=== PATIENT | female | born 1950 | race Caucasian/White ===

== ENCOUNTER 2019-02-02 13:04 | Inpatient (IN) | payer MEDICARE ==
[2019-02-02 13:45] LABS: #Eosinphils 0.1 thou/uL (0.0-0.7); #Lymphocytes 0.8 thou/uL (1.20-3.40); #Monocytes 1.1 thou/uL (0.11-0.59); #Neutrophils 6.6 thou/uL (1.40-6.50); %Basophils 0.5 % (0.0-1.0); %Eosinophils 1.4 % (0.0-10.0); %Lymphocytes 8.8 % (21.0-51.0); %Monocytes 12.4 % (0.0-10.0); %Neutrophils 76.8 % (42.0-75.0); Hemoglobin 9.9 g/dL (12.0-16.0); Mean Corpuscular HGB CONC 32.5 g/dL (32.0-36.0); Mean Corpuscular Hemoglobin 31.2 pg (27.0-31.0); Mean Corpuscular Volume 96.1 fL (78.0-98.0); Mean Platelet Volume 6.7 fL (7.4-10.4); Platelet Count 331 thou/uL (130-400); RBC Distribution Width 12.5 % (11.5-14.5); Red Blood Cell (RBC) Count 3.16 mill/uL (4.20-5.40); White Blood Cell (WBC) Count 8.6 thou/uL (4.8-10.8)
--- NOTE | 2019-02-02 13:51 | RAD ---
Exam: Chest one view HISTORY:Emergency exam for syncope Comparison: 12/27/2018 FINDINGS: Lungs: Persistent focal density of the right suprahilar region Cardiac silhouette:Stable prominence Pulmonary vessels: Central engorgement Pleural Spaces: Clear Pneumothorax: None Osseous abnormalities: None of acuity. IMPRESSION: Persistent right suprahilar focal opacity remains. Given persistence, follow-up with contrast-enhanced CT thorax is recommended.
[2019-02-02 14:07] LABS: ALT (SGPT) 13 U/L (8-55); AST (SGOT) 19 U/L (5-34); Albumin 3.4 g/dL (3.4-4.8); Alkaline Phosphatase 55 U/L (40-150); Anion Gap 14 mmol/L (10-20); BUN (Urea Nitrogen) 31 mg/dL (9.8-20.1); Bilirubin, Total 0.3 mg/dL (0.2-1.2); Calc. Creatinine Clearance 0 mL/min (70-130); Carbon Dioxide 18 mmol/L (23-31); Chloride 99 mmol/L (98-107); Estimated GFR-MDRD 40; Globulin 2.1 g/dL (2.4-3.5); Glucose 92 mg/dL (80-115); Magnesium 1.9 mg/dL (1.6-2.6); Potassium 4.4 mmol/L (3.5-5.1); Protein, Total 5.5 g/dL (6.0-8.3); Sodium 127 mmol/L (136-145)
[2019-02-02 14:28] LABS: CKMB 1.3 ng/mL (0-6.6)
[2019-02-02] MEDS ORDERED: Ondansetron ODT 4 MG TAB SL PRN (16:24)
[2019-02-02] MEDS ORDERED: Ondansetron PF 4 MG/2 ML Vial IVP PRN (16:24)
[2019-02-02 16:29] VITALS: BMI 21.7
[2019-02-02] MEDS ORDERED: Acetaminophen 325 MG TAB PO PRN (16:49)
[2019-02-02] MEDS ORDERED: Metoclopramide HCl 10 MG/2 ML VIAL IVP PRN (16:51)
[2019-02-02 17:35] LABS: Troponin I 0.017 ng/mL (< 0.028)
[2019-02-02 17:59] LABS: Anion Gap 15 mmol/L (10-20); BUN (Urea Nitrogen) 25 mg/dL (9.8-20.1); Calc. Creatinine Clearance 61 mL/min (70-130); Calcium 8.3 mg/dL (7.8-10.44); Carbon Dioxide 21 mmol/L (23-31); Chloride 101 mmol/L (98-107); Estimated GFR-MDRD 55; Glucose 94 mg/dL (80-115); Potassium 4.5 mmol/L (3.5-5.1); Sodium 132 mmol/L (136-145)
--- NOTE | 2019-02-02 18:05 | HP ---
PRIMARY CARE: Jesenia Khanna MD CHIEF COMPLAINT: Passing out. HISTORY OF PRESENT ILLNESS: This is a 68-year-old female with remote history of breast cancer, status post mastectomy, who presents to the emergency room via EMS for a syncopal event at home. The patient reports today her neck started hurting, and her rubbed it for her. The patient reports today otherwise feeling well except for having some neck pain. States that she got up and started walking and became dizzy; at which point, she sat down. She thought she was feeling okay, stood up again and then felt like she was going down and was shaking all over. She was told by her that she became unresponsive, and she does not remember the events afterwards. However, she reports, when she came to, she was not confused. Denies any loss of bowel or bladder function. She does report nausea yesterday , but no vomiting, and 2 days ago, having multiple episodes of vomiting for which she was seen by a primary care provider and received promethazine and Zofran. She was able to eat breakfast today, denies any precipitants or relieving factors for her current symptoms. The patient has a history of migraines and is on multiple medications for this and reports that she has had weeks of right-sided pain around her eye. She is working with Dr. Khanna to get the CT of her sinuses for further evaluation. She also reports chronically a runny nose and a sensation of pressure around her right eye. She denies any fevers, chills, chest pain, difficulty breathing, nausea, vomiting, or diarrhea currently. She also denies any urinary changes or vision changes. In discussion with the emergency room doctor, she was found by EMS with the pulse as low as the 30s to 40s, systolic blood pressure in the 60s, and was brought to the emergency room here. Her initial vital signs here were blood pressure of 98/53, pulse of 54, and hospitalist called for admission due to concern of symptomatic bradycardia as well as hyponatremia. ALLERGIES: PENICILLIN. CURRENT MEDICATIONS: Reconciled with the patient, 1. Breo Ellipta 200-25 one inhalation daily. 2. Nadolol that she takes at night 80 mg tablet, 1-1/2 tablets at bedtime. 3. Escitalopram 20 mg daily. 4. Gabapentin 300 mg b.i.d. 5. Tylenol No. 3, reports rare use. 6. Promethazine 25 mg one dose today and one dose 2 days ago. 7. Tizanidine 4 mg at bedtime. 8. Ketorolac 10 mg tablets 2 tablets as needed, which she estimates are weekly. 9. Zofran ODT 4 mg two doses recently. 10. Relpax 40 mg tablets, 2 tablets as needed, she reports a few times per week. PAST MEDICAL HISTORY: 1. Bronchiectasis. 2. Mycobacterial abscesses of the lung. 3. Occipital neuralgia. 4. Migraines. 5. History of breast cancer, status post right mastectomy in 1985. PAST SURGICAL HISTORY: 1. Jaw surgery. 2. Cholecystectomy. 3. Hysterectomy. 4. Oophorectomy. 5. Right mastectomy in 1985. 6. Knee surgery. 7. Umbilical hernia repair. SOCIAL HISTORY: The patient is . Her Femi and son Chandu are her surrogate decision makers. She denies any tobacco, and reports rare alcohol use. FAMILY HISTORY: Her mom who with lung problems. REVIEW OF SYSTEMS: Positive for headache that she has had for weeks, chronic rhinorrhea, pressure around her right eye. Negative for fevers, chills, chest pain, shortness of breath, nausea, vomiting, diarrhea, urinary changes, or vision changes. All remaining review of systems are reviewed and negative. PHYSICAL EXAMINATION: VITAL SIGNS: Blood pressure is 147/67, pulse 53, respirations 18, temperature 97.3, and sats 97% on room air. GENERAL: Awake, alert, responsive, in no apparent distress. Able to speak in full sentences. HEENT: Her pupils are equal, round, and reactive to light. No scleral icterus. Oral mucosa is pink, appears dry. NECK: Supple, nontender. LYMPHATICS: No palpable cervical or supraclavicular lymphadenopathy. LUNGS: Clear to auscultation bilateral. No audible wheezing, rhonchi, or rales. HEART: Normal S1, S2. Regular rate and rhythm. No significant murmur. ABDOMEN: Soft with present bowel sounds. Nontender. Nondistended. EXTREMITIES: No clubbing, cyanosis, or edema. SKIN: No visible rashes. NEUROLOGIC: No focal deficits. Strength 5/5 in her upper and lower extremities. Cranial nerves 2 through 12 are intact. PSYCH: She is euthymic. Alert and oriented x4. VASCULAR: 2+ dorsalis pedis pulses. IMAGING: EKG; personally reviewed, sinus bradycardia with a rate of 54, normal axis, a QT corrected of 508. No ST changes. Chest x-ray shows a right suprahilar focal opacity that was present also on a chest x-ray in December with a recommendation for CT of her thorax. LABORATORY DATA: Labs reviewed. CBC; 8.6, 9.9, 30.4, 331 with 76% neutrophils , 8% lymphocytes. Renal panel; 127, 4.4, 99, 18, 31, 1.31 with a glucose of 92, no other creatinine for reference. LFTs are T-bilirubin 0.3, AST 19, ALT 13, alkaline phosphatase 55, total protein 5.5, albumin 3.4. Troponin 0.029. IMPRESSION: 1. Syncope with significant bradycardia noted on EMS evaluation in a patient who is on beta piotr for migraine prophylaxis. 2. Hypotension in conjunction with the bradycardia in a patient with significant nausea and vomiting recently and decreased p.o. intake. 3. Hyponatremia, likely hypovolemic hyponatremia in conjunction with the recent nausea, vomiting, and decreased p.o. intake. 4. Acute kidney injury versus chronic kidney disease. No prior labs for comparison. 5. Acute on chronic migraines. 6. Anemia, uncertain chronicity, no reports of active bleeding. 7. Prolonged QT interval with a QTc of 508. 8. An abnormal chest x-ray of uncertain etiology, needs further workup. 9. Hypoproteinemia. 10. Bronchiectasis, no signs of exacerbation. PLAN: 1. Admission to the hospital. 2. Monitoring on telemetry in the [facility], holding her nadolol, obtaining echocardiogram, and Cardiology consultation. 3. We will continue selective home medicines including the Breo, gabapentin, and tizanidine. 4. Because of the prolonged QT interval, we will hold the promethazine and Zofran and use Reglan instead for nausea, vomiting, or migraine. 5. Holding NSAIDs for now given the acute kidney injury. 6. We will characterize the anemia and monitor with ordering iron and vitamin studies. 7. We will obtain urine test to evaluate further hyponatremia. 8. Hold on the CT Thorax scan, we will await evaluation from a Cardiac perspective first, monitor her renal functions and determine if that is an inpatient or outpatient evaluation. Pulmonology by hospital protocol is consulted with an [facility] patient. 9. Falls precautions. 10. DVT prophylaxis. Pneumatic compression devices. 11. GI prophylaxis, not indicated. 12. Code status is full. Surrogate decision maker as above. 13. Reviewed the plan of care with patient and her family. No questions or further needs at the end of evaluation. The patient is at high risk given age, comorbidities, and current presentation. Job ID: [id number] MTDD
[2019-02-02 18:43] LABS: Bacteria/HPF 1+ HPF (None Seen); Bilirubin Negative (Negative); Blood, Urine Negative (Negative); Clarity Clear (Clear); Glucose, Urine (Dipstick) Normal (Negative); Leukocyte Negative Leu/uL (Negative); Nitrite Negative (Negative); Protein, Urine (Dipstick) Negative (Neg-Trace); RBC/HPF 0-3 HPF (0-3); Squamous Epithelial None Seen HPF (0-3); Urobilinogen Normal mg/dL (Less than 2); WBC/HPF 0-3 HPF (0-3)
[2019-02-02] MEDS: Arformoterol 15 MCG/2 ML NEB NEB SCH (18:58)
[2019-02-02] MEDS: Budesonide 0.5 MG/2 ML NEB INH SCH (18:58)
[2019-02-02 19:03] LABS: Urine Culture Reflex No No
[2019-02-02] MEDS ORDERED: Sodium Chloride 0.9% 500 ML IV SCH (19:15)
[2019-02-02 19:25] LABS: Creatinine, Urine Less than 20.00 mg/dL (47-110); Sodium, Urine 26 mmol/L (Not Available)
--- NOTE | 2019-02-02 19:41 | CON ---
DATE OF CONSULTATION: 02/02/2019 REASON FOR CONSULTATION: Syncope. HISTORY OF PRESENT ILLNESS: Ms. Ortega is a pleasant 68-year-old white female, who comes to the hospital for syncopal spell. She was at home and stood up, felt lightheaded. She says her blood pressure usually runs low, so she is used to feeling lightheaded when she stands up. She thought was going to pass, so she sat back down. She thought it was better, so she stood up to go to the bathroom and she felt very much more lightheaded than before and eventually went to the ground. She does not remember much after that, but per her 's report, she apparently started shouting to capture. He dropped his lunch and went to her and was able to put her softly to the ground. She eventually woke up after EMS had arrived already. She tells me that her states that she actually came back, regained consciousness while she was still on the floor, but she does not remember and she tried to get up and when she tried to get up, she again lost consciousness. When EMS arrived, her heart rate was in the 40s and her blood pressure was in the 60s/40s. She was brought in through EMS and in the ER, her heart rate kept dipping down to the 30s, but she was awake at that point. She received IV fluids and admitted for the syncopal spell. She states that two days before this episode happened, she had an episode of severe bouts of nausea and vomiting. She thinks she might have had some food poisoning as she states she probably threw up about 10 times in the whole day. She was not able to keep anything down. She called the service "[facility]" to come to her house and they actually came over to her house and gave her a shot of an anti-inflammatory. She was also having migraine headaches and they gave her IM Phenergan. She did not really increase her fluid intake the day after. She feels that she just drank fluids as normal, but she feels that she was very light on her food and water intake the next day. Currently, she is feeling back to normal. Her blood pressure is actually on the high side and her heart rate has remained in the 60s. PAST MEDICAL HISTORY: 1. Migraine headaches. 2. Breast cancer, status post mastectomy in the 1980s, in remission since. 3. Bronchiectasis. 4. Mycobacterial abscess of the lung in the past. 5. Occipital neuralgia. PAST SURGICAL HISTORY: 1. Jaw surgery. 2. Cholecystectomy. 3. Hysterectomy. 4. Oophorectomy. 5. Right mastectomy in 1985. 6. Knee surgery. 7. Umbilical hernia repair. MEDICATIONS: Outpatient medications include: 1. Breo Ellipta. 2. Nadolol 80 mg tablet, one and a half tablets at bedtime, so a total of 120 mg. 3. Escitalopram 20 mg. 4. Gabapentin 300 mg b.i.d. 5. Tylenol No. 3. 6. Promethazine. 7. Tizanidine at bedtime. 8. Ketorolac. 9. Zofran ODT. 10. Relpax. SOCIAL HISTORY: No alcohol, tobacco, or drugs. FAMILY HISTORY: No early coronary artery disease. REVIEW OF SYSTEMS: A 12-point review of systems was done and was all negative unless stated in the history of present illness. PHYSICAL EXAMINATION: VITAL SIGNS: Pulse of 65, respiratory rate 16, saturating 97% on room air, and blood pressure 162/88. GENERAL: Awake, alert, oriented x3, in no distress. HEENT: Normocephalic, atraumatic. NECK: Supple. LUNGS: Clear. CARDIOVASCULAR: S1 and S2. No S3 or S4. No murmurs. ABDOMEN: Soft. Positive bowel sounds. EXTREMITIES: No edema. SKIN: Warm and dry. LABORATORY DATA: Laboratory work was reviewed. Sodium was 127 on admission, up to 132 after IV fluids. Creatinine was 1.3 on admission, down to 1.01 after fluids. Troponin was 0.02 and then 0.01 with a normal CK-MB. Albumin of 3.4. EKG was reviewed. Sinus bradycardia in the ER, but sinus rhythm since. Chest x-ray was reviewed. ASSESSMENT: 1. Syncope. Most likely, orthostatic hypotension. 2. Hypernatremia. Likely, low volume. 3. Acute kidney injury. Normalized creatinine after IV fluids. PLAN: 1. I do not think her syncopal episode was related to bradycardia. More than likely, it was related to having orthostatic hypotension from being dehydrated from all the nausea and vomiting that she had the day before. We would give her IV fluids to try to get her backup fluid thomas. I do not think she needs a pacemaker at this time. 2. We would stop nadolol indefinitely given her borderline low heart rate at baseline. 3. Continue to monitor overnight, likely home once sodium and kidney function back to normal. 4. We would just recommend maintaining well hydrated. If she ever has another episode of nausea, vomiting, or diarrhea, she needs to really keep hydrating as much as possible. Thank you for letting us to participate in the care of your patient. We will continue to follow. Job ID: [id number]
[2019-02-02 19:51] LABS: Troponin I Less than 0.010 ng/mL (< 0.028)
[2019-02-02] MEDS: Gabapentin 300 MG CAP PO SCH (20:30)
[2019-02-02] MEDS ORDERED: tiZANidine HCl 4 MG TAB PO SCH (21:00)
[2019-02-03 04:09] LABS: #Basophils 0.1 thou/uL (0.0-0.2); #Eosinphils 0.2 thou/uL (0.0-0.7); #Lymphocytes 1.1 thou/uL (1.20-3.40); #Monocytes 1.2 thou/uL (0.11-0.59); #Neutrophils 7.3 thou/uL (1.40-6.50); %Basophils 0.7 % (0.0-1.0); %Eosinophils 1.7 % (0.0-10.0); %Lymphocytes 11.3 % (21.0-51.0); %Monocytes 12.2 % (0.0-10.0); %Neutrophils 74.1 % (42.0-75.0); Hemoglobin 10.4 g/dL (12.0-16.0); Mean Corpuscular HGB CONC 32.5 g/dL (32.0-36.0); Mean Corpuscular Volume 95.5 fL (78.0-98.0); Mean Platelet Volume 6.4 fL (7.4-10.4); Platelet Count 383 thou/uL (130-400); RBC Distribution Width 12.5 % (11.5-14.5); Red Blood Cell (RBC) Count 3.37 mill/uL (4.20-5.40); White Blood Cell (WBC) Count 9.8 thou/uL (4.8-10.8)
[2019-02-03 04:32] LABS: Anion Gap 12 mmol/L (10-20); BUN (Urea Nitrogen) 20 mg/dL (9.8-20.1); Calc. Creatinine Clearance 74 mL/min (70-130); Calcium 8.5 mg/dL (7.8-10.44); Carbon Dioxide 22 mmol/L (23-31); Chloride 104 mmol/L (98-107); Estimated GFR-MDRD 67; Glucose 83 mg/dL (80-115); Iron 20 ug/dL (50-170); Iron Binding Capacity, Total 309 mcg/dL (265-497); Potassium 3.9 mmol/L (3.5-5.1); Sodium 134 mmol/L (136-145)
[2019-02-03 05:54] LABS: Folate (Folic Acid) 10.3 ng/mL (7.0-31.4)
[2019-02-03] MEDS: Budesonide 0.5 MG/2 ML NEB INH SCH (07:49)
[2019-02-03] MEDS: Arformoterol 15 MCG/2 ML NEB NEB SCH (07:50)
[2019-02-03] MEDS: Gabapentin 300 MG CAP PO SCH (08:21)
[2019-02-03] MEDS ORDERED: Escitalopram Oxalate 20 mg Tablet PO SCH (09:00)
--- NOTE | 2019-02-03 11:05 | CON ---
DATE OF CONSULTATION: 02/03/2019 CONSULTING PHYSICIAN: Shalini Bear MD. REASON FOR CONSULTATION: Abnormal x-ray. HISTORY OF PRESENT ILLNESS: Ms. Ortega is a pleasant 68-year-old female, who recently relocated to this area, [place], [place]. She was brought in yesterday with symptomatic bradycardia, which was thought to be a combination of dehydration and use of beta-piotr. She was noted to have an abnormal x-ray with a density in the right upper lobe. She tells me she was diagnosed with bronchiectasis back in 2004. At that time, she had Mycobacterium abscessus infection. She was sent from [facility] for consultation to [facility]. 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 She surprisingly is relatively asymptomatic from this. She occasionally has a cough. She has been taking Breo Ellipta for that and has been relatively stable. She has always had an abnormal x-ray since the original diagnosis. She apparently has a CT scan in her position at home, but is not currently available for review at the hospital. PAST MEDICAL HISTORY: 1. Bronchiectasis. 2. Mycobacterial infections. 3. Migraine headaches. 4. Breast cancer. PAST SURGICAL HISTORY: Right mastectomy, jaw surgery, cholecystectomy, hysterectomy, oophorectomy, knee surgery, and umbilical hernia repair. SOCIAL HISTORY: Quit smoking over 45 years ago. She lives in [place]. Does not consume alcohol. FAMILY MEDICAL HISTORY: Unremarkable. MEDICATIONS: Prior to admission; 1. Breo Ellipta 200/25 one puff daily. 2. Nadolol 80 mg one and a half tablet nightly. 3. Escitalopram 20 mg daily. 4. Gabapentin 300 mg b.i.d. 5. Tylenol No. 3 as needed. 6. Promethazine 25 mg as needed. 7. Tizanidine 4 mg nightly. 8. Ketoralac 10 mg 2 tablets as needed. 9. Zofran 4 mg as needed. 10. Relpax 40 mg two as needed. REVIEW OF SYSTEMS: Twelve-point review of systems is otherwise negative. PHYSICAL EXAMINATION: VITAL SIGNS: Temperature 98.5, pulse 65, blood pressure 184/67, and O2 saturation 93%. GENERAL: She is awake and alert, in no distress. HEENT: Remarkable for no acute findings. NECK: Without adenopathy or JVD. CHEST: Clear without wheezing or rhonchi. CARDIAC: S1 and S2 regular without murmur. ABDOMEN: Soft, nontender, and nondistended. EXTREMITIES: No clubbing, cyanosis, or edema. LABORATORY DATA: Sodium of 134, potassium 3.9, chloride 104, CO2 of 22, BUN 20, creatinine 0.8, and glucose 83. White blood cell count 9.8, hematocrit 32.1, and platelet count 383. IMAGING DATA: Chest x-ray from yesterday and from 12/27 was reviewed, demonstrates a chronic scar present in the right upper lobe. No acute findings, otherwise. ASSESSMENT: Bronchiectasis with a history of atypical mycobacterial infections, currently asymptomatic. Her x-ray is most likely consistent with the bronchiectasis. RECOMMENDATIONS: I would not recommend further imaging at this time. I have asked her to follow up in the office with the old CT scan, so we can compare. I would not change her medical regimen for this. She can follow up in the office in 4 to 6 weeks. The above encompassed 50 minutes time, of that time, greater than 50% was spent with the patient and/or the patient's unit in the hospital. From a Pulmonary standpoint, the patient is cleared to go home today. Job ID: [id number]
[2019-02-03 11:35] VITALS: TEMP 98
[2019-02-03 11:52] VITALS: BP 172/80
--- NOTE | 2019-02-03 13:36 | PDOC.CTH ---
Cardiology Progress Note - Subjective Doing very well. BP a little on the high side now. - Objective Vital Signs Temp Pulse Resp BP BP BP BP 02/03/19 11:49 168/83 H 166/76 H 172/80 H 02/03/19 11:35 98.0 F 02/03/19 08:00 02/03/19 07:52 98.7 F 02/03/19 07:49 63 18 02/03/19 05:00 161/62 H 02/03/19 03:45 98.5 F 02/03/19 03:00 132/59 L Pulse Ox 02/03/19 11:49 02/03/19 11:35 02/03/19 08:00 97 02/03/19 07:52 02/03/19 07:49 100 02/03/19 05:00 02/03/19 03:45 02/03/19 03:00 Weight 160 lb 4.417 oz 02/02/19 02/03/19 02/04/19 06:59 06:59 06:59 Intake Total 740 Balance 740 - Physical Examination General/Neuro: alert & oriented x3, NAD Neck: no JVD present Lungs: CTA, unlabored respirations Heart: RRR Abdomen: NT/ND Extremities: + edema B (no edema) - Telemetry Telemetry Rhythm: NSR - Labs Result Diagrams: 02/03/19 03:57 02/03/19 03:57 Troponin/CKMB CK-MB (CK-2) 1.3 ng/mL (0-6.6) 02/02/19 13:26 Troponin I Less than 0.010 ng/mL (< 0.028) 02/02/19 19:14 - Assessment/Plan 1. Syncope. 2. Likely orthostatic hypotension from dehydration from recent bouts of emesis. 3. Mild to moderate AI. 4. HTN 5. Migraine headaches. PLAN: - Continue current meds. - Hold Nadolol indefinitely. - Will ask her to continue to check her BP sitting and standing and will bring a log of her numbers on next visit. - May discharge home from cardiac perspective. - Follow up in the office in 1 month.
--- NOTE | 2019-02-03 22:19 | DIS ---
DATE OF ADMISSION: 02/02/2019 DATE OF DISCHARGE: 02/03/2019 PRIMARY CARE PROVIDER: Jesenia Khanna MD DISCHARGE DIAGNOSES: 1. Syncope. 2. Dehydration. 3. Bradycardia. 4. Hyponatremia. 5. Acute kidney injury. CONDITION OF PATIENT ON THE DAY OF DISCHARGE: Stable. I assessed Ms. Ortega on the day of discharge. She denies any chest pain or shortness of breath. Vital signs are stable. S1 and S2 are heard, regular. Lungs are clear to auscultation bilaterally. DISCHARGE MEDICATIONS: Nadolol has been discontinued. Otherwise, no change was made to her pre-admission home medications as dictated by Dr. Bear in her history and physical note dated February 02, 2019. CONSULTATIONS DURING THIS HOSPITALIZATION: 1. Cardiology, Zach Real MD. 2. Pulmonology, David Oviedo MD. HOSPITAL COURSE: Ms. Ortega is a pleasant 68-year-old lady, who was admitted to [facility] on February 02, 2019, for syncopal episode. She had nausea, vomiting, and diarrhea prior to this hospitalization. She was clinically dehydrated. She was seen by Cardiology, Pulmonary, and Critical Care Medicine Services. She was also bradycardic at the time of admission. Nadolol was discontinued. Her syncopal episode was mainly felt to be secondary to dehydration resulting in orthostatic hypotension. 2D echocardiogram showed left ventricular ejection fraction of 60% to 65%, grade 1/3 diastolic dysfunction, mildly dilated left atrium, mitral annular calcification, mild mitral regurgitation, aortic valve sclerosis, [id number] aortic regurgitation, and mild tricuspid regurgitation. Cardiology and Pulmonology Services will follow up with her as outpatient. On the day of discharge, she has white count 9800, hemoglobin 10.4, platelet count 383,000. Sodium 134, potassium 3.9, and creatinine 0.84. Please note that the patient also had acute kidney injury at the time of admission, this resolved by the day of discharge. During this hospitalization, she had vitamin B12 level of 396, folate level of 10.30, and normal troponin I. Many thanks for allowing me to participate in your patient's care. Please feel free to contact me with any questions or concerns. DISCHARGE DESTINATION: Home. TIME SPENT: Total amount of time spent coordinating this discharge: 31 minutes. Job ID: [id number]
== END 2019-02-03 13:00 | disposition home or self-care (01) | DRG 312 ==
LOC: ERS 13:04 → IMCU/EMU 15:20
PROVIDERS: ADMIT Family Medicine; ATTEND Family Medicine
DX: I95.1 Orthostatic hypotension (principal); E87.1 Hypo-osmolality and hyponatremia; N17.9 Acute kidney failure, unspecified; G43.909 Migraine, unspecified, not intractable, without status migrainosus; R00.1 Bradycardia, unspecified; D64.9 Anemia, unspecified; J47.9 Bronchiectasis, uncomplicated; E77.8 Other disorders of glycoprotein metabolism; E86.0 Dehydration; I08.3 Combined rheumatic disorders of mitral, aortic and tricuspid valves; Z88.0 Allergy status to penicillin; Z85.3 Personal history of malignant neoplasm of breast; Z90.11 Acquired absence of right breast and nipple; Z90.49 Acquired absence of other specified parts of digestive tract; Z90.710 Acquired absence of both cervix and uterus; Z90.721 Acquired absence of ovaries, unilateral; Z87.891 Personal history of nicotine dependence
CPT/HCPCS: 36415; 71045; 80048; 80053; 81001; 82553; 82570; 82607; 82728; 82746; 83540; 83550; 83735; 83935; 84300; 84484; 85025; 86850; 86900; 86901; 93005; 93306; 94640; J7626

== ENCOUNTER 2019-02-09 13:06 | Outpatient (CLI) | payer MEDICARE ==
--- NOTE | 2019-02-09 14:11 | CT ---
PARANASAL SINUS CT NONCONTRAST: INDICATION: Right facial pain. COMPARISON: No prior imaging comparison. FINDINGS: Left femoral sinus, ethmoid sinus, sphenoid sinus, and maxillary sinuses are patent. There is no roxanne dence of otomastoid effusion. Regional soft tissues are grossly unremarkable by noncontrast appearan ce. There is mild leftward nasal sepal deviation. IMPRESSION: No CT evidence of acute sinusitis. POS: [facility]
== END 2019-02-09 13:07 | disposition home or self-care (01) ==
LOC: SCSCT 13:06
PROVIDERS: ATTEND Family Medicine
DX: R51 Headache (principal)

== ENCOUNTER 2019-02-14 15:33 | Emergency (ER) | payer MEDICARE ==
[2019-02-14] MEDS ORDERED: diphenhydrAMINE 50 MG/ML VIAL ONE (15:48)
[2019-02-14] MEDS ORDERED: Metoclopramide HCl 10 MG/2 ML VIAL ONE (15:48)
[2019-02-14] MEDS ORDERED: Ketorolac Tromethamine 30 MG/ML VIAL ONE (15:48)
[2019-02-14] MEDS ORDERED: Magnesium 2 GM/50 ML BAG (IN WATER) ONE (16:24)
[2019-02-14] MEDS ORDERED: methylPREDNISolone Sod Succ/PF 125 MG/2 ML VIAL ONE (16:24)
[2019-02-14] MEDS ORDERED: Haloperidol Lactate 5 MG/ML VIAL ONE (17:17)
--- NOTE | 2019-02-14 18:32 | CT ---
CT HEAD WITHOUT CONTRAST: 02/14/19 Axial tomograms obtained without IV enhancement. INDICATIONS: Headache. Ventricles have normal size and position. No intracranial mass or hemorrhage. No evidence of infarct or edema. Sinuses and mastoid are well aerated and clear. IMPRESSION: No acute process. POS: [facility]
[2019-02-14] MEDS ORDERED: Diazepam 5 MG TAB ONE (18:36)
[2019-02-14] MEDS ORDERED: Promethazine HCl 12.5 MG SUPP ONE (19:53)
[2019-02-14] MEDS ORDERED: Metoprolol Tartrate 5 MG/5 ML VIAL ONE (19:53)
[2019-02-14] MEDS ORDERED: Promethazine HCl 25 MG/ML VIAL ONE (19:55)
== END 2019-02-14 20:55 | disposition home or self-care (01) ==
LOC: ERS 15:33
DX: R51 Headache (principal); R11.2 Nausea with vomiting, unspecified; Z79.899 Other long term (current) drug therapy; Z79.891 Long term (current) use of opiate analgesic
CPT/HCPCS: 70450; 96365; 96367; 96368; 96375; J1200; J1630; J1885; J2550; J2765; J2930; J3475

== ENCOUNTER 2019-02-27 10:50 | Outpatient (CLI) | payer MEDICARE ==
--- NOTE | 2019-02-27 13:16 | MRI ---
MRI BRAIN WITH AND WITHOUT CONTRAST: Date: 02/27/19 Multiplanar, multisequential imaging obtained. Postcontrast images obtained after administering 14 mL MultiHance IV. INDICATION: Headache. Correlation made to CT head dated 02/14/19. FINDINGS: Ventricles have normal size and position. No evidence of restricted diffusion. There is no evidence o f mass or edema. Minimal white matter change seen consistent with age. Intracranial internal carotid arteries and cerebral arteries show expected flow-voids. No abnormal enhancement identified. IMPRESSION: Unremarkable MRI brain. POS: [facility]
== END 2019-02-27 10:51 | disposition home or self-care (01) ==
LOC: SCSMRI 10:50
PROVIDERS: ATTEND Psychiatry & Neurology Neurology
DX: G43.019 Migraine without aura, intractable, without status migrainosus (principal)
CPT/HCPCS: 70553

== ENCOUNTER 2019-05-18 13:05 | Outpatient (CLI) | payer MEDICARE ==
--- NOTE | 2019-05-18 15:50 | CT ---
CT CHEST WITH CONTRAST: Date: 05/18/19 Multiplanar reconstruction with IV enhancement. INDICATION: Persistent density in the right upper lung on chest films. Correlation made to the most recent chest film available dated 02/02/19. Comparison made to previous chest [facility] from [facility] dated 01/21/16. FINDINGS: There is right apical pleural thickening and apical stranding. There is a right apical nodule with mi ld spiculation which measures 7.0 mm in the axial plane. This nodule is stable from 2016. The apical stranding has increased slightly since that study. There is a second area of apical nodularity which extends from the pleural surface of the anterior right apex which is stable in appearance. There is linear opacity seen in the minor fissure on the right which would account for the persistent density seen on chest films. This has a linear configuration in the coronal and sagittal plane and w ould be most consistent with linear atelectasis. It is new when compared to the 2016 exam. Right lower lobe appears clear. Left lung shows mild linear stranding and interstitial changes in the periphery of the left upper lob e extending to the pleural surface, more prominent than on the prior exam. There is linear stranding anterior left upper lobe near the cardiophrenic angle similar to the prior CT. Mild bronchiectasis in both lower lobes. Mediastinum unremarkable with no adenopathy. Thoracic aorta and pulmonary arteries show normal enhanc ement with no dissection or proximal pulmonary embolus. Images through upper abdomen show numerous renal cystic lesions which are incompletely evaluated. Osseous structures unremarkable. IMPRESSION: 1. There are chronic lung parenchymal changes. There is right apical pleural thickening and right ap ical nodularity which appears stable from the prior CT. 2. There is new plate-like atelectasis in the right middle lobe today as described above. 3. Peripheral interstitial changes in the left upper lobe are slightly more prominent today. Strandi ng and/or atelectasis in the anterior left mid lung at the cardiophrenic angle is similar to the prio r exam. POS: [facility]
== END 2019-05-18 13:06 | disposition home or self-care (01) ==
LOC: SCSCT 13:05
PROVIDERS: ATTEND Internal Medicine Critical Care Medicine
DX: R91.8 Other nonspecific abnormal finding of lung field (principal); J92.9 Pleural plaque without asbestos; J98.4 Other disorders of lung
CPT/HCPCS: 71260; 82565

== ENCOUNTER 2020-06-25 14:01 | Outpatient (CLI) | payer MEDICARE ==
--- NOTE | 2020-06-25 14:19 | RAD ---
EXAM: Two views chest PROVIDED CLINICAL HISTORY: Dyspnea. COMPARISON: 02/02/2019 FINDINGS: Cardiac silhouette is mildly enlarged. The pulmonary vasculature is within normal limits. Mild increa sed density in the right midlung zone primarily along the region of the minor fissure. The area of opacity in the right midlung zone has improved compared to study on 12/27/2018. Persistent mild linear densities in this region are likely due to mild pleural and parenchymal scarri ng. No new area of consolidation or pleural fluid is seen. Vascular calcifications are seen in the thoracic aorta. Surgical clips again overlie the right upper quadrant. No other interval change. Mauri te posterior left upper rib fracture is present. IMPRESSION: 1. Mild chronic lung changes without evidence of an acute cardiopulmonary process. 2. Mild cardiomegaly..
== END 2020-06-25 14:02 | disposition home or self-care (01) ==
LOC: BICRAD 14:01
PROVIDERS: ATTEND Internal Medicine Critical Care Medicine
DX: R06.00 Dyspnea, unspecified (principal); I51.7 Cardiomegaly
CPT/HCPCS: 71046

== ENCOUNTER 2021-04-07 09:35 | Outpatient (CLI) | payer MEDICARE ==
[2021-04-07 11:02] LABS: #Basophils 0.1 thou/uL (0.0-0.2); #Eosinphils 0.2 thou/uL (0.0-0.7); #Monocytes 0.5 thou/uL (0.11-0.59); #Neutrophils 3.1 thou/uL (1.40-6.50); %Basophils 1.1 % (0.0-1.0); %Eosinophils 3.5 % (0.0-10.0); %Lymphocytes 20.1 % (21.0-51.0); %Monocytes 9.7 % (0.0-10.0); %Neutrophils 65.6 % (42.0-75.0); Hemoglobin 11.4 g/dL (12.0-16.0); Mean Corpuscular HGB CONC 33.2 g/dL (32.0-36.0); Mean Corpuscular Hemoglobin 31.9 pg (27.0-31.0); Mean Corpuscular Volume 96.2 fL (78.0-98.0); Mean Platelet Volume 6.9 fL (7.4-10.4); Platelet Count 471 thou/uL (130-400); RBC Distribution Width 11.5 % (11.5-14.5); Red Blood Cell (RBC) Count 3.57 mill/uL (4.20-5.40); White Blood Cell (WBC) Count 4.7 thou/uL (4.8-10.8)
[2021-04-07 14:39] LABS: ALT (SGPT) 14 U/L (8-55); AST (SGOT) 19 U/L (5-34); Albumin 4.4 g/dL (3.4-4.8); Alkaline Phosphatase 87 U/L (40-110); Anion Gap 16 mmol/L (10-20); BUN (Urea Nitrogen) 14 mg/dL (9.8-20.1); Bilirubin, Total 0.3 mg/dL (0.2-1.2); Calc. Creatinine Clearance 0 mL/min (70-130); Carbon Dioxide 25 mmol/L (23-31); Chloride 97 mmol/L (98-107); Cholesterol 275 mg/dl (< 200 Desired); Globulin 2.6 g/dL (2.4-3.5); Glucose 93 mg/dL (83-110); HDL Cholesterol 68 mg/dL (>60 Neg Risk); LDL Cholesterol, Calculated 184 mg/dL; Potassium 4.5 mmol/L (3.5-5.1); Sodium 133 mmol/L (136-145); Triglycerides 116 mg/dL (Less than 150)
[2021-04-07 15:52] LABS: Free T4 (Free Thyroxine) 0.84 ng/dL (0.70-1.48); Thyroid Stimulating Hormone 1.3677 uIU/mL (0.35-4.94)
== END 2021-04-07 09:36 | disposition home or self-care (01) ==
LOC: SCSRAD 09:35
PROVIDERS: ATTEND Internal Medicine Cardiovascular Disease
DX: R06.02 Shortness of breath (principal); J98.4 Other disorders of lung; Z98.890 Other specified postprocedural states; Z87.81 Personal history of (healed) traumatic fracture
CPT/HCPCS: 36415; 71046; 80053; 80061; 83880; 84439; 84443; 85025

== ENCOUNTER 2022-11-05 14:44 | Outpatient (CLI) | payer MEDICARE | END 2022-11-05 14:45 | disposition home or self-care (01) | LOC: RAD 14:44 | PROVIDERS: ATTEND Internal Medicine Critical Care Medicine | DX: R06.00 Dyspnea, unspecified (principal) | CPT/HCPCS: 71046 ==

== ENCOUNTER 2024-08-07 09:18 | Outpatient (CLI) | payer MEDICARE | END 2024-08-07 09:19 | disposition home or self-care (01) | LOC: SCSRAD 09:18 | PROVIDERS: ATTEND Internal Medicine Gastroenterology | DX: G43.909 Migraine, unspecified, not intractable, without status migrainosus (principal); K59.00 Constipation, unspecified; K92.1 Melena; K63.89 Other specified diseases of intestine; E78.5 Hyperlipidemia, unspecified | CPT/HCPCS: 36415; 74019; 80053; 80061; 84443; 85025 ==